=== PATIENT | female | born 1930 | race Hispanic/Latino ===

== ENCOUNTER 2016-11-06 06:24 | Day surgery (SDC) | payer MEDICARE ==
[2016-10-26 10:19] VITALS: BMI 23.1
[2016-11-06] MEDS ORDERED: Propofol 10 mg/ml Inj (20 ML) ONE (07:55)
[2016-11-06] MEDS ORDERED: Etomidate 20 mg/10ml Inj IV ONE (07:56)
[2016-11-06] MEDS ORDERED: Sodium Chloride 0.9% 1,000 ML IV SCH (09:15)
[2016-11-06 09:17] VITALS: O2SAT 99
[2016-11-06 10:04] VITALS: BP 152/66; PULSE 60; RESP 17; TEMP 97.6
== END 2016-11-06 10:33 | disposition home or self-care (01) ==
LOC: ENDO 06:24
PROVIDERS: ATTEND Internal Medicine
DX: K22.8 Other specified diseases of esophagus (principal); K21.0 Gastro-esophageal reflux disease with esophagitis; K29.70 Gastritis, unspecified, without bleeding; D12.5 Benign neoplasm of sigmoid colon; K57.30 Diverticulosis of large intestine without perforation or abscess without bleeding; K64.8 Other hemorrhoids; I10 Essential (primary) hypertension; Z91.040 Latex allergy status
CPT/HCPCS: 43239; 45380; 88305; 88312; 88342; J2001; J2704; J7040 ×2

== ENCOUNTER 2017-04-01 16:38 | Emergency (ER) | payer MEDICARE ==
[2017-04-01 16:42] VITALS: BMI 22.4
[2017-04-01 16:48] VITALS: BP 156/73; PULSE 71; RESP 18; TEMP 97.9; O2SAT 98
--- NOTE | 2017-04-01 17:57 | ED PDOC ---
Arrival/HPI - General Chief Complaint: Lower Extremity Problem/Injury Time Seen by Provider: 04/01/17 16:54 Historian: Patient - History of Present Illness Narrative History of Present Illness (Text): 04/01/17 17:56 86 y.o. female who says the lights were off while going down the stairs and wound falling two steps and the distal aspect of her left foot rolled under her right leg. No right leg or hip pain. No head injury and no complaints beside left foot pain. Past Medical History - Infectious Disease Hx of Infectious Diseases: None - Cardiac Hx Hypertension: Yes Hx Pacemaker: No Other/Comment: Mitral valve prolapse - Pulmonary Hx Respiratory Disorders: No - Neurological Hx Paralysis: No - HEENT Hx Macular Degeneration: Yes (right eye) - Renal Hx Renal Disorder: No - Endocrine/Metabolic Hx Endocrine Disorders: No - Hematological/Oncological Hx Blood Transfusions: No Hx Blood Transfusion Reaction: No - Integumentary Hx Dermatological Disorder: No - Musculoskeletal/Rheumatological Other/Comment: Osteopenia - Gastrointestinal Hx Gastroesophageal Reflux: Yes - Genitourinary/Gynecological Hx Genitourinary Disorders: No - Psychiatric Hx Emotional Abuse: No Hx Physical Abuse: No Hx Substance Use: No - Surgical History Hx Cataract Extraction: Yes Hx Section: Yes Hx Tonsillectomy: Yes - Anesthesia Hx Anesthesia: Yes Hx Anesthesia Reactions: No - Suicidal Assessment Feels Threatened In Home Enviroment: No Family/Social History Family/Social History: Unknown Family HX Smoking Status: Never Smoked Hx Alcohol Use: No Hx Substance Use: No Allergies/Home Meds Allergies/Adverse Reactions: Allergies latex Allergy (Verified 07/08/16 11:56) RASH AVACADO Adverse Reaction (Uncoded 11/06/16 07:09) RASH BANANA Adverse Reaction (Uncoded 11/06/16 07:07) RASH BEETS Adverse Reaction (Uncoded 11/06/16 07:07) RASH Home Medications: Home Meds Medication Instructions Recorded Confirmed Acetylcarnitine [Acetyl 1 cap PO DAILY 07/08/16 04/01/17 l-Carnitine] Aspirin [Ecotrin] 81 mg PO DAILY 07/08/16 04/01/17 Cranberry Conc/C/Bacill Coag 1 tab PO BID 07/08/16 04/01/17 [Cranberry Tablet] Glucosamine/MSM/Chondroit Sulf 1 tab PO DAILY 07/08/16 04/01/17 [Cvs Kjywiotnhtm-Aiqwtp-FEW Tab] Multivit-Min/FA/Lycopen/Lutein 1 tab PO DAILY 07/08/16 04/01/17 [Centrum Silver Tablet] Active C 500 mg PO DAILY 10/26/16 04/01/17 Cholecalciferol [Vitamin D] 1,000 iu PO DAILY 10/26/16 04/01/17 Metoprolol Succinate 25 mg PO DAILY 10/26/16 04/01/17 Hydrochlorothiazide [Microzide] 12.5 mg PO MWF 11/06/16 04/01/17 Polyethylene Glycol 3350 [Miralax] 1 packet PO DAILY 04/01/17 04/01/17 Ranitidine HCl [Acid Floor Coverings Installer] 1 tab PO BID 04/01/17 04/01/17 Rosuvastatin Calcium [Crestor] 1 tab PO HS 04/01/17 04/01/17 Review of Systems - Review of Systems Constitutional: Normal Respiratory: Normal. absent: SOB Cardiovascular: Normal Gastrointestinal: Normal Musculoskeletal: Other (left foot pain) Neurological: absent: Headache, Dizziness Physical Exam Vital Signs Temp Pulse Resp BP Pulse Ox 04/01/17 16:47 97.9 F 71 18 156/73 H 98 Temperature: Afebrile Blood Pressure: Normal Pulse: Regular Respiratory Rate: Normal Appearance: Positive for: Well-Appearing, Non-Toxic, Comfortable Pain Distress: None Mental Status: Positive for: Alert and Oriented X 3 - Systems Exam Head: Present: Atraumatic, Normocephalic Neck: No: MIDLINE TENDERNESS Back: No: Midline Tenderness Lower Extremity: Present: Other (L foot with swelling distally, greatest at the ip joint of the left big toe with ecchymosis.) Neurological: Present: GCS=15, CN II-XII Intact, Speech Normal Skin: Present: Warm, Dry, Normal Color. No: Rashes Psychiatric: Present: Alert, Oriented x 3, Normal Insight, Normal Concentration Medical Decision Making ED Course and Treatment: 04/01/17 18:09 Patient with noted history; x-ray shows left big toe fx - will place in hard soled post-op shoe and f/u podiatry. - RAD Interpretation Radiology Orders: 04/01/17 17:00 FOOT LEFT 3 VIEWS ROUTINE [RAD] Stat Disposition/Present on Arrival - Present on Arrival Any Indicators Present on Arrival: No History of DVT/PE: No History of Uncontrolled Diabetes: No Urinary Catheter: No History of Decub. Ulcer: No History Surgical Site Infection Following: None - Disposition Have Diagnosis and Disposition been Completed?: Yes Diagnosis: Fractured great toe Disposition: HOME/ ROUTINE Disposition Time: 17:55 Patient Plan: Discharge Condition: GOOD Discharge Instructions (ExitCare): Toe Fracture (ED) Additional Instructions: Use open-toe hard-soled shoe for ambulation. Apply ice over area of swelling and pain. Tylenol for pain. You may use tramadol for pain if tylenol is inadequate. Follow up with podiatry in 1 week. Return to the emergency department if any new concerning symptoms. Prescriptions: Tramadol HCl/Acetaminophen [Ultracet Tablet] 1 tab PO Q8H PRN #12 tablet PRN Reason: Pain, Severe (8-10) Referrals: Sid Scott MD [Primary Care Provider] - Follow up with primary Forms: Thumb ([place])
--- NOTE | 2017-04-02 08:49 | RAD ---
PROCEDURE: Left Foot Radiographs. HISTORY: L foot injury; swelling L big toe COMPARISON: None. FINDINGS: BONES: There is an acute nondisplaced intra-articular fracture in the distal aspect of the proximal phalanx of the great toe. Bone alignment is normal. There is diffuse bone demineralization. 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 The remaining joint spaces are preserved. SOFT TISSUES: There is mild periarticular soft tissue swelling at the 1st MTP joint OTHER FINDINGS: None. IMPRESSION: Acute nondisplaced intra-articular fracture in the distal aspect of the proximal phalanx of the great toe. This finding was brought to the ER's attention by taggingthe folder to DICKSON melendez.
== END 2017-04-01 18:02 | disposition home or self-care (01) ==
LOC: ED 16:38
DX: S92.415A Nondisplaced fracture of proximal phalanx of left great toe, initial encounter for closed fracture (principal); W10.9XXA Fall (on) (from) unspecified stairs and steps, initial encounter; I10 Essential (primary) hypertension

== ENCOUNTER 2018-08-22 12:35 | Outpatient (CLI) | payer MEDICARE | END 2018-08-22 12:36 | disposition home or self-care (01) | LOC: RAD 12:36 ==